=== PATIENT | female | born 1985 | race African-American/Black ===

== ENCOUNTER 2016-04-21 21:23 | Emergency (ER) | payer OTHER ==
[~2016-04-21] VITALS: Ht 167.6 cm; Wt 68.2 kg
[2016-04-21 21:25] VITALS: TEMP 98.6
[2016-04-21 22:29] LABS: BASO % 0.3 % (0.0-2.0); EOS # 0.1 (0.0-0.7); EOS % 1.4 % (0-4.0); GRAN # 2.1 (1.4-6.5); GRAN % 34.1 % (42.2-75.2); HEMATOCRIT 40.5 % (37.0-47.0); HEMOGLOBIN 13.5 g/dl (12.5-16.0); LYMPH # 3.6 (1.2-3.4); LYMPH % 57.3 % (20.0-51.0); MEAN CELL VOLUME 93 fl (80.0-100.0); MEAN CORPUSCULAR HEMOGLOBIN 31 pg (27.0-31.0); MEAN CORPUSCULAR HGB CONC 33 g/dl (33.0-37.0); MEAN PLATELET VOLUME 12.5 fl (7.4-10.4); MONO # 0.4 (0.1-0.6); MONO % 6.7 % (1.7-9.3); PLATELET COUNT 226 K/mm3 (130-400); RED BLOOD COUNT 4.37 M/mm3 (4.10-5.30); WHITE BLOOD COUNT 6.3 K/mm3 (4.8-10.8)
[2016-04-21 22:50] LABS: PH 9 (5-8); SQUAMOUS EPITHELIAL 0-2 /hpf; URINE APPEARANCE Cloudy; URINE BACTERIA None Seen /hpf; URINE BILIRUBIN Negative (NEGATIVE); URINE BLOOD Negative (NEGATIVE); URINE COLOR Yellow; URINE GLUCOSE Negative (NEGATIVE); URINE KETONE Negative (NEGATIVE); URINE RBC 0-2 /hpf; URINE UROBILINOGEN Negative (NEGATIVE); URINE WBC 0-2 /hpf
[2016-04-21 22:51] LABS: ADJUSTED CALCIUM 9.1 mg/dL (8.4-10.2); ALANINE AMINOTRANSFERASE 33 U/L (9-52); ALBUMIN 4.5 gm/dL (3.5-5.0); ALKALINE PHOSPHATASE 73 U/L (50-136); ANION GAP 12 mmol/L (7-16); BILIRUBIN,TOTAL 0.6 mg/dL (0.0-1.0); BLOOD UREA NITROGEN 15 mg/dL (7-17); CALCIUM 9.5 mg/dL (8.4-10.2); CARBON DIOXIDE 28 mmol/L (22-30); CHLORIDE 100 mmol/L (98-107); CREATININE, serum 0.75 mg/dL (0.52-1.25); GLUCOSE 84 mg/dL (74-106); POTASSIUM 4.1 mmol/L (3.4-5.0); SODIUM 140 mmol/L (137-145); TOTAL PROTEIN 8.3 gm/dL (6.4-8.2)
[2016-04-21 22:52] LABS: C-REACTIVE PROTEIN < 0.5 mg/dL (0.0-0.9)
[2016-04-21 23:15] LABS: TROPONIN-I < 0.012 ng/mL (0.000-0.034)
[2016-04-21 23:28] LABS: LIPASE 126 U/L (23-300)
[2016-04-22] VITALS: BP 126/81; PULSE 60
== END 2016-04-22 00:01 | disposition home or self-care (01) ==
LOC: COL.ER 21:23
PROVIDERS: Emergency Medicine
DX: R10.11 Right upper quadrant pain (principal)
CPT/HCPCS: J1170; J1885; J2405; J7030

== ENCOUNTER 2017-06-23 02:14 | Outpatient (CLI) | payer BC ==
[~2017-06-23] VITALS: Ht 165.1 cm; Wt 85.0 kg
[2017-06-23 02:46] VITALS: BP 134/87; PULSE 68; TEMP 98.5
[2017-06-23] MEDS ORDERED: PRENATAL1 TA7 PO (02:54)
== END 2017-06-23 04:30 | disposition home or self-care (01) ==
LOC: LDRO 02:14
DX: O62.9 Abnormality of forces of labor, unspecified (principal); Z3A.41 41 weeks gestation of pregnancy

== ENCOUNTER 2017-06-23 10:40 | Inpatient (IN) | payer BC ==
[~2017-06-23] VITALS: Ht 165.1 cm; Wt 85.0 kg
[2017-06-23] VITALS (47 sets, daily range): BP systolic 103–1132; BP diastolic 53–93; PULSE 71–151; TEMP 98.3–100.6
[~2017-06-23 10:40] MED LIST: PRENATAL1 TA7 PO
[2017-06-23 11:37] LABS: BASO % 0.2 % (0.0-2.0); GRAN # 8.3 (1.4-6.5); GRAN % 82.3 % (42.2-75.2); HEMATOCRIT 37.9 % (37.0-47.0); HEMOGLOBIN 12.5 g/dl (12.5-16.0); LYMPH # 1.2 (1.2-3.4); LYMPH % 11.5 % (20.0-51.0); MEAN CELL VOLUME 89 fl (80.0-100.0); MEAN CORPUSCULAR HEMOGLOBIN 29 pg (27.0-31.0); MEAN CORPUSCULAR HGB CONC 33 g/dl (33.0-37.0); MEAN PLATELET VOLUME 13.1 fl (7.4-10.4); MONO # 0.5 (0.1-0.6); MONO % 5.2 % (1.7-9.3); PLATELET COUNT 104 K/mm3 (130-400); RED BLOOD COUNT 4.25 M/mm3 (4.10-5.30); REDCELL DISTRIBUTION WIDTH-CV 14.8 % (11.5-14.5)
[2017-06-24] VITALS (11 sets, daily range): BP systolic 121–151; BP diastolic 57–80; PULSE 74–118; TEMP 97.7–99.8
[2017-06-25 00:31] VITALS: BP 117/69; PULSE 76; TEMP 98.3
[2017-06-25 04:39] VITALS: BP 122/59; PULSE 67; TEMP 97.6
[2017-06-25 07:40] LABS: BASO % 0.2 % (0.0-2.0); EOS # 0.1 (0.0-0.7); EOS % 0.4 % (0-4.0); GRAN # 7.7 (1.4-6.5); GRAN % 63.3 % (42.2-75.2); HEMOGLOBIN 10.9 g/dl (12.5-16.0); LYMPH # 3.2 (1.2-3.4); LYMPH % 26.4 % (20.0-51.0); MEAN CELL VOLUME 93 fl (80.0-100.0); MEAN CORPUSCULAR HEMOGLOBIN 30 pg (27.0-31.0); MEAN CORPUSCULAR HGB CONC 32 g/dl (33.0-37.0); MEAN PLATELET VOLUME 12.8 fl (7.4-10.4); MONO % 8.4 % (1.7-9.3); PLATELET COUNT 100 K/mm3 (130-400); RED BLOOD COUNT 3.61 M/mm3 (4.10-5.30); REDCELL DISTRIBUTION WIDTH-CV 15.4 % (11.5-14.5)
[2017-06-25 07:41] LABS: HEMATOCRIT 33.6 % (37.0-47.0)
[2017-06-25 08:25] VITALS: BP 125/62; PULSE 73; TEMP 97.3
[2017-06-25 15:37] VITALS: BP 130/68; PULSE 72; TEMP 97.8
[2017-06-25 18:45] VITALS: BP 134/78; PULSE 78; TEMP 97.7
[2017-06-26 08:00] VITALS: BP 134/73; PULSE 78; TEMP 98.6
[2017-06-26] MEDS ORDERED: PERCOCET 325 MG1 TA2 PO (08:59)
[2017-06-26] MEDS ORDERED: IBU800 M1 PO (08:59)
[2017-06-26] MEDS ORDERED: SENOKOT S 50 MG1 TAB PO (08:59)
== END 2017-06-26 15:35 | disposition home or self-care (01) | DRG 775 ==
LOC: LDR 10:40 → OB 06-24 03:00 → LDR 06-26 12:49 → OB 06-26 15:35 → LDR 06-26 19:49
PROVIDERS: Obstetrics & Gynecology
PROC: 10E0XZZ Delivery of Products of Conception, External Approach (ICD-10-PCS; principal; 2017-06-24)
PROC: 0W8NXZZ Division of Female Perineum, External Approach (ICD-10-PCS; 2017-06-24)
DX: O99.12 Other diseases of the blood and blood-forming organs and certain disorders involving the immune mechanism complicating childbirth (principal); O41.1230 Chorioamnionitis, third trimester, not applicable or unspecified; Z3A.41 41 weeks gestation of pregnancy; Z37.0 Single live birth; Z22.330 Carrier of Group B streptococcus
CPT/HCPCS: J1580; J2210; J2540; J2590; J7120